=== PATIENT | male | born 1945 | race Caucasian/White ===

== ENCOUNTER 2019-10-01 09:42 | Emergency (ER) | payer MEDICARE, SELFPAY ==
--- NOTE | ~2019-10-01 | CT_ITS ---
EXAMINATION: CT brain wo con DATE: 10/01/2019 10:25 INDICATION: Dizziness. TECHNIQUE: Computed tomography (CT) of the head was performed without intravenous contrast. The mA wa s adjusted according to patient size. Iterative reconstruction technique was employed. The dose-lengt h product was 605.33 mGy-cm. COMPARISON: Head CT 10/21/2016 FINDINGS: There are scattered areas of low attenuation in the cerebral white matter, which is within normal limits for the patient's age. There is no intracranial hemorrhage, acute infarction, or abnorm al intracranial mass lesion. The ventricles are normal in size. 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 There is mild mucosal thickening in the paranasal sinuses. The mastoid air cells are normal. IMPRESSION: 1. Normal aging brain. Reviewed, dictated and finalized at location A. ING EDITOR IMPRESSION: 1. Normal aging brain.
[2019-10-01 09:44] VITALS: BP 131/69; PULSE 60; RESP 18; TEMP 36.6; O2SAT 96
--- NOTE | 2019-10-01 09:58 | ECG_ITS ---
Measurements Intervals [place] Rate: 61 P: 69 MI: 148 QRS: 77 QRSD: 78 T: 129 QT: 424 QTc: 427 Interpretive Statements SINUS RHYTHM ATRIAL PREMATURE COMPLEX CANNOT RULE OUT SEPTAL INFARCT, AGE INDETERMINATE BORDERLINE ST-T WAVE ABNORMALITY- INF/LAT LEADS BASELINE ARTIFACT- I, II, III, AVR, AVL, AVF ABNORMAL ECG Electronically Signed On 10-01-2019 11:48:21 SHOWER ENCLOSURE INSTALLER by Luigi Mares D.O.
[2019-10-01 09:59] VITALS: BP 130/80; PULSE 59; RESP 15; O2SAT 95
--- NOTE | 2019-10-01 10:05 | PC.NURSE ---
PT REPORTS THAT HIS LAST KNOWN NORMAL WAS LAST NIGHT WHEN HE WENT TO, THAT HE WOKE UP THIS MORNING NOT FEELING CORRECT, AND THEN HAD THE SUDDEN ONSET DIZZINESS AND NAUSEA. SPOKE WITH BEATRIZ CONSTANTINO ABOUT PT SX, VERBAL ORDER GIVEN FOR CT BRAIN.
[2019-10-01 10:06] LABS: Basophils Absolute Auto 0.1 K/mm3 (0.0-0.1); Basophils Percent Auto 0.9 % (0.2-1.2); Eosinophils Absolute Auto 0.2 K/mm3 (0-0.3); Eosinophils Percent Auto 2.6 % (0-4.4); Hematocrit 44.2 % (42.0-52.0); Hemoglobin 14.4 g/dL (14.0-18.0); Immature Granulocyte Absolute 0.06 K/mm3 (0.00-0.031); Immature Granulocyte Percent A 0.7 % (0-0.5); Lymphocytes Absolute Auto 1.89 K/mm3 (0.9-3.2); Mean Corpuscular HGB Conc 32.6 g/dl (32-36); Mean Corpuscular Hemoglobin 30.6 pg (26-34); Mean Corpuscular Volume 93.8 fl (80-100); Mean Platelet Volume 9.7 fl (7.4-10.4); Monocytes Absolute Auto 1.1 K/mm3 (0.1-0.6); Neutrophils Absolute Auto 5.7 K/mm3 (1.3-6.7); Neutrophils Percent Auto 62.8 % (45.5-73.1); Platelet Count Result 247 k/mm3 (150-375); Red Blood Count 4.71 M/mm3 (4.6-6.20); Red Cell Distribution Width 13.2 % (11.5-14.5)
--- NOTE | 2019-10-01 10:18 | PC.NURSE ---
PT TO CT PER TECH AT THIS TIME.
[2019-10-01 10:19] LABS: Blood Urea Nitrogen 10 mg/dL (9-20); Calcium 8.9 mg/dL (8.4-10.2); Carbon Dioxide 24 mmol/L (22-30); Chloride 101 mmol/L (98-107); Estimated CRCL calculation 64 ml/min; Estimated Glomerular Filt Rate > 60; Glucose 116 mg/dL (75-110); Potassium 4.3 mmol/L (3.4-5.0); Sodium 137 mmol/L (137-145)
[2019-10-01 10:51] VITALS: BP 124/74; PULSE 53; RESP 19; O2SAT 96
--- NOTE | 2019-10-01 11:01 | ED.DIZZY ---
HPI - Dizziness General Chief Complaint: Dizziness Stated Complaint: dizziness Time Seen by Provider: 10/01/19 10:53 Source: patient Mode of arrival: ambulatory Limitations: no limitations History of Present Illness HPI Narrative: Pt is a 74 y/o male who presents to the ED with c/o dizziness that started at 8AM. He states that he was sitting down and all of a sudden the room started spinning. He denies CP, chest discomfort, nausea, or ABD pain. He notes that his dizziness is better in the ED bed but it is still present. Pt states that he has never had this dizziness before. MD elicited complaint: dizziness Onset (ago): hour(s) (3) Timing: sudden onset Description: room spinning Context: at rest History of similar symptoms: No Associated symptoms: denies other symptoms Related Data Home Medications Medication Instructions Recorded Confirmed aspirin [Aspir-81] 81 mg PO DAILY 10/01/19 clopidogrel [Plavix] 10/01/19 diltiazem HCl 10/01/19 simvastatin 5 mg PO DAILY 10/01/19 Allergies Allergy/AdvReac Type Severity Reaction Status Date / Time No Known Allergies Allergy Mild Unverified 05/07/11 11:17 Review of Systems Review of Systems: All systems reviewed & are unremarkable except as noted in HPI and below Cardiovascular: Cardiovascular: Denies chest pain and Denies other (chest discomfort) Gastrointestinal: Gastrointestinal: Denies abdominal pain and Denies nausea Neurologic: Reports dizziness PMFSH Past Medical History Medical History (Updated 10/01/19 @ 13:02 by Job Blevins MD) HLD (hyperlipidemia) Surgical History Surgical History (Updated 10/01/19 @ 11:18 by Kiana Edmonds) H/O heart artery stent History of arthroplasty of right knee Hx of appendectomy Social History Social History (Updated 10/01/19 @ 11:21 by Kiana Edmonds) Smoking status: Former smoker Alcohol intake: current Gender identity (if verbalized by the patient): Male Exam Narrative: Exam Narrative: GENERAL: Well-appearing, well-nourished, and in no acute distress. HEAD: Normocephalic, atraumatic. EYES: PERRLA and EOMI. ENT: Nares clear, . Mucous membranes moist. NECK: Supple. CHEST: Clear to auscultation. No respiratory distress. HEART: Regular rate and rhythm. No murmur heard. Normal peripheral pulses. ABDOMEN: Soft, nontender, nondistended, normal active bowel sounds. EXTREMITIES: Normal range of motion. No edema. SKIN: Warm, dry, no rash. NEURO: No focal deficits. Alert and oriented x3. PSYCH: Normal mood and affect. Course Course Emergency Course: Patient states he is feeling much better, I discussed lab CT findings with the patient and the family. He is able to eat his lunch without any difficulty. Advised him to take meclizine 25 mg every 6 as needed for dizziness. Also recommended him to follow-up with his primary doctor. Vital Signs Vital signs: Vital Signs Temperature 36.6 C 10/01/19 09:44 Pulse Rate 60 10/01/19 09:44 Respiratory Rate 18 10/01/19 09:44 Blood Pressure 131/69 10/01/19 09:44 Pulse Oximetry 96 10/01/19 09:44 Temperature 36.6 C 10/01/19 09:44 Pulse Rate 62 10/01/19 12:02 Respiratory Rate 19 10/01/19 10:51 Blood Pressure 127/88 10/01/19 12:02 Pulse Oximetry 96 10/01/19 10:51 MDM - Dizziness Lab Data Result diagrams: 10/01/19 10:00 10/01/19 10:00 Labs: Lab Results 10/01/19 10/01/19 Range/Units 10:00 10:00 WBC 9.0 (4.5-10.0) K/mm3 RBC 4.71 (4.6-6.20) M/mm3 Hgb 14.4 (14.0-18.0) g/dL Hct 44.2 (42.0-52.0) % MCV 93.8 (80-100) fl MCH 30.6 (26-34) pg MCHC 32.6 (32-36) g/dl RDW 13.2 (11.5-14.5) % Plt Count 247 (150-375) k/mm3 MPV 9.7 (7.4-10.4) fl Immature Gran % (Auto) 0.7 H (0-0.5) % Neut % (Auto) 62.8 (45.5-73.1) % Lymph % (Auto) 21.0 (18.3-44.2) % Ida % (Auto) 12.0 H (2.6-8.5) % Eos % (Auto) 2.6 (0-4.4) % Baso % (Auto) 0.9 (0.2-1.
[2019-10-01] MEDS: MECLIZINE HCL 25 MG TABLET PO (11:25)
[2019-10-01] MEDS: LORAZEPAM INJ 2 MG/ML VIAL 0.5 MG IV PUSH (11:25)
[2019-10-01] MEDS: SODIUM CHLORIDE 0.9% IV 1,000 ML 150 ML IV CONT (11:25)
[2019-10-01 12:02] VITALS: BP 117/66; BP 127/75; BP 127/88; PULSE 60; PULSE 61; PULSE 62
[2019-10-01 13:13] VITALS: BP 122/70; PULSE 64; RESP 20; O2SAT 99
--- NOTE | 2019-10-09 13:41 | PC.NURSE ---
LATE ENTRY This note is being entered to document information to the patient's record. The following information was omitted on [10/01/19], by INGE Hernandez. Pt recieved 1 L NS infusion and was completed 1 hr after initiation.
== END 2019-10-01 13:25 | disposition home or self-care (01) ==
PROVIDERS: Emergency Provider Family Medicine; PCP Registered Nurse
DX: H81.10 Benign paroxysmal vertigo, unspecified ear (principal); E78.5 Hyperlipidemia, unspecified; Z95.5 Presence of coronary angioplasty implant and graft; Z87.891 Personal history of nicotine dependence; I49.1 Atrial premature depolarization; R94.31 Abnormal electrocardiogram [ECG] [EKG]
CPT/HCPCS: 36415; 70450; 80048; 85025; 93005; 96361; 96374; 99284; A9270; J2060; J7030

== ENCOUNTER 2021-04-26 21:14 | Emergency (ER) | payer MEDICARE, SELFPAY ==
[2021-04-26 21:19] VITALS: BP 136/77; PULSE 68; RESP 18; TEMP 36.8; O2SAT 96
--- NOTE | 2021-04-26 21:56 | ED.UPPEXIN ---
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 Patient denies any other pain or injuries. Related Data Home Medications Medication Instructions Recorded Confirmed aspirin [Aspir-81] 81 mg PO DAILY 10/01/19 clopidogrel [Plavix] 10/01/19 diltiazem HCl 10/01/19 simvastatin 5 mg PO DAILY 10/01/19 Allergies Allergy/AdvReac Type Severity Reaction Status Date / Time No Known Allergies Allergy Mild Verified 04/26/21 21:29 Review of Systems Review of Systems: All systems reviewed & are unremarkable except as noted in HPI and below PMFSH Past Medical History Medical History HLD (hyperlipidemia) Surgical History Surgical History H/O heart artery stent History of arthroplasty of right knee Hx of appendectomy Social History Social History Smoking status: Former smoker Alcohol intake: current Gender identity (if verbalized by the patient): Male Exam Const: General: no acute distress and alert Orientation/consciousness: patient oriented x3 HENMT: Head: normal to inspection Eyes: Conjunctivae: conjunctivae normal Neck: Neck: normal visual inspection Neuro: General: patient oriented x3 and moves all extremities Extrem: Other: 2 cm laceration to tip of middle finger. Full range of motion. Neurovascularly intact. Course Vital Signs Vital signs: Vital Signs Temperature 36.8 C 04/26/21 21:19 Pulse Rate 68 04/26/21 21:19 Respiratory Rate 18 04/26/21 21:19 Blood Pressure 136/77 04/26/21 21:19 Pulse Oximetry 96 04/26/21 21:19 Temperature 36.8 C 04/26/21 21:19 Pulse Rate 68 04/26/21 21:19 Respiratory Rate 18 04/26/21 21:19 Blood Pressure 136/77 04/26/21 21:19 Pulse Oximetry 96 04/26/21 21:19 Procedures Laceration Laceration 1: Date: 04/26/21 Time: 22:05 Side (If applicable): right (Third digit right hand) Size (cm): 2 Description: linear ====== Skin Level ====== Skin layer closed with: dermabond ====== Subcutaneous Layer ====== ====== Muscle Layer ====== ====== Tendon Layer ====== Discharge Plan Discharge Clinical Impression: Finger laceration Qualifiers: Encounter type: initial encounter Finger: middle finger Damage to nail status: without damage Foreign body presence: without foreign body Laterality: right Qualified Code(s): S61.212A - Laceration without foreign body of right middle finger without damage to nail, initial encounter Patient Disposition: Home, Self-Care Condition: Improved Instructions: Skin Adhesive Care (ED) Prescriptions: No Action clopidogrel [Plavix] 75 mg Tablet RF: 0 aspirin [Aspir-81] 81 mg Tablet,Delayed Release (Dr/Ec) 81 mg PO DAILY RF: 0 simvastatin 5 mg Tablet 5 mg PO DAILY RF: 0 diltiazem HCl 60 mg Tablet RF: 0 meclizine 25 mg tablet 25 mg PO TID Qty: 30 RF: 0 Follow-up/Referrals: DEL,FRANCIS KAUR [Primary Care Provider] - 04/30/21 Time of Disposition: 22:24
[2021-04-26 22:32] VITALS: BP 134/78; PULSE 78; RESP 18; O2SAT 100
== END 2021-04-26 22:32 | disposition home or self-care (01) ==
LOC: ANHED 22:11
PROVIDERS: Emergency Provider Emergency Medicine; PCP Nurse Practitioner Family
DX: S61.212A Laceration without foreign body of right middle finger without damage to nail, initial encounter (principal); E78.5 Hyperlipidemia, unspecified; Z79.82 Long term (current) use of aspirin; Z79.02 Long term (current) use of antithrombotics/antiplatelets; Z95.5 Presence of coronary angioplasty implant and graft; Z96.651 Presence of right artificial knee joint; Z87.891 Personal history of nicotine dependence; W29.3XXA Contact with powered garden and outdoor hand tools and machinery, initial encounter
CPT/HCPCS: 12001; 99282

== ENCOUNTER → 2023-02-14 14:07 | Outpatient (CLI) | payer MEDICARE, SELFPAY ==
--- NOTE | ~2023-02-14 | XR_ITS ---
Left ankle Technique: AP, oblique, and lateral views were obtained. Clinical History: Pain Findings: No acute fracture or dislocation is seen. Osseous alignment is anatomic. Ankle mortise and other visualized joint spaces are preserved. Soft tissues are otherwise unremarkable. Impression: Unremarkable left ankle. Reviewed, dictated and finalized at location . Impression: Unremarkable left ankle.
--- NOTE | ~2023-02-14 | XR_ITS ---
EXAMINATION: XR foot LT min 3V DATE: 02/14/2023 14:31 INDICATION: Left foot pain. TECHNIQUE: 4 views of left foot were obtained. COMPARISON: None. FINDINGS: Bone alignment is normal. No fracture. There is mild osteoarthritis of first, third, and fi fth metatarsophalangeal joints and some of the interphalangeal joints. There is an enthesophyte at pl irma aspect of calcaneal tuberosity. IMPRESSION: 1. Mild polyarticular osteoarthritis. Reviewed, dictated and finalized at location E.
== END ==
PROVIDERS: PCP Nurse Practitioner; Visit Provider Nurse Practitioner
DX: M19.072 Primary osteoarthritis, left ankle and foot (principal)
CPT/HCPCS: 73610; 73630